=== PATIENT | male | born 1970 | race Hispanic/Latino ===

== ENCOUNTER 2021-03-06 15:04 | Emergency (ER) | payer OTHER ==
[~2021-03-06] VITALS: Ht 170.2 cm; Wt 105.9 kg
[~2021-03-06 15:04] MED LIST: NAPROSYN500 MG PO
[2021-03-06] MEDS ORDERED: AZITHROMYCIN500 MG PO (17:42)
[2021-03-06] MEDS ORDERED: DECADRON6 MG PO (17:42)
[2021-03-06 18:34] VITALS: BP 132/63
== END 2021-03-06 18:35 | disposition home or self-care (01) | DRG 177 ==
LOC: ED 15:04
DX: U07.1 COVID-19 (principal); J12.82 Pneumonia due to coronavirus disease 2019; I10 Essential (primary) hypertension; E78.5 Hyperlipidemia, unspecified